=== PATIENT | female | born 1990 | race African-American/Black ===

== ENCOUNTER 2017-09-19 09:50 | Outpatient (CLI) | payer BC ==
--- NOTE | 2017-09-19 11:48 | RAD ---
FOUR VIEWS LEFT KNEE: Date: 09-19-17 History: Left knee pain. No history of trauma. FINDINGS: There is no evidence of a fracture, dislocation, or other osseous abnormality involving the left knee . IMPRESSION: No acute osseous abnormality of the left knee. POS: [facility]
== END 2017-09-19 09:51 | disposition home or self-care (01) ==
LOC: NAV RAD 09:50
PROVIDERS: ATTEND Internal Medicine
DX: M25.562 Pain in left knee (principal)